=== PATIENT | female | born 1995 | race Caucasian/White ===

== ENCOUNTER 2022-06-20 12:55 | Outpatient (CLI) | payer BC, SELFPAY ==
--- NOTE | 2022-06-20 13:00 | CRLHL7_ITS ---
For Patients: As a result of the Cures Act, medical imaging exams and procedure reports are released immediately into your electronic medical record. You may view this report before your referring provider. If you have questions, please contact your health care provider. INDICATION: First trimester scan, establish dates. TECHNIQUE: Real-time zavala-scale imaging of the pelvis was performed. FINDINGS: Sonographic imaging demonstrates a single living intrauterine gestation. The embryo demonstrates a regular cardiac rate measuring 171 beats per minute. The embryo`s crown-rump length measurement o 1.9 Cm corresponds to a gestational age of 8 weeks 3 days with a sonographic due date of . There is a normal-appearing yolk sac. 01/27/2023. Three small areas of subchorionic hemorrhages measuring 0.8 x 1 x 0 5 centimeters, 1 x 0.5 x 6 centimeters and 0.9 x 3 x 0 4 centimeters. Left ovary seen right ovary appears unremarkable. IMPRESSION: Single live intrauterine gestation. Gestational age of 8 weeks 3 days with ALEX of 01/27/2023. Three small subchorionic hemorrhages. Dictated by Neha Matute MD @ 06/20/2022 2:36:23 PM (Electronically Signed)
== END 2022-06-20 12:56 | disposition home or self-care (01) ==
LOC: US 12:57
PROVIDERS: Visit Provider Advanced Practice Midwife
DX: Z34.91 Encounter for supervision of normal pregnancy, unspecified, first trimester (principal); Z3A.08 8 weeks gestation of pregnancy
CPT/HCPCS: 76817; 86592; 86703; 86762; 86787; 86803; 86850; 86900; 86901; 87086; 87340

== ENCOUNTER 2022-09-10 13:53 | Outpatient (CLI) | payer BC, SELFPAY ==
--- NOTE | 2022-09-10 14:04 | CRLHL7_ITS ---
For Patients: As a result of the Century Cures Act, medical imaging exams and procedure reports are released immediately into your electronic medical record. You may view this report before your referring provider. If you have questions, please contact your health care provider. INDICATION: Evaluate anatomy. COMPARISON: 06/20/2022 TECHNIQUE: Real time zavala scale imaging of the fetus was performed as well as color Doppler analysis of the umbilical vessels. FINDINGS: Sonographic imaging demonstrates a single living intrauterine gestation. Fetus demonstrates a regular cardiac rate of 141 beats per minute. Fetus has a vertex position. The placenta lies anteriorly without evidence of placenta previa. The edge of the placenta is located 10.3 cm from the internal cervical os. Amniotic fluid volume appears normal. Single deepest vertical pocket: 5.8 cm. The cervix is closed and measures 3.7 cm in length. The composite ultrasound gestational age is calculated at 21 weeks 0 days with an estimated sonographic due date of 01/21/2023. The estimated weight is 390 grams which lies at the 75th %. The following biometric measurements were obtained: Biparietal diameter: 4.9 cm/20 weeks 5 days 60th% Head circumference: 18.0 cm/20 weeks 3 days 42nd% Abdominal circumference: 16.4 cm/21 weeks 3 days 77th% Femur length: 3.4 cm/20 weeks 4 days 45th% The HC/AC ratio measures: 1.10 range (1.06-1.25) On anatomic survey, there is a normal appearance of the cerebral ventricles, cavum septi pellucidi, cisterna magna and cerebellum. The nose, lips, and facial profile appear normal. The cervical, thoracic and lumbar spine are well visualized and appear normal. There is a normal four-chamber heart view and the left and right ventricular outflow tracts appear normal. The diaphragm and stomach appear normal. The kidneys and bladder also appear normal. There is a normal three-vessel cord and cord insertion site. The four extremities appear normal. IMPRESSION: Normal OB ultrasound exam with concordance of clinical and sonographic dating. No intrinsic abnormalities noted on anatomic survey. Dictated by Carlin Adrian MD @ 09/11/2022 12:47:19 PM (Electronically Signed)
== END 2022-09-10 13:54 | disposition home or self-care (01) ==
LOC: US 13:53
PROVIDERS: Visit Provider Advanced Practice Midwife
DX: Z34.02 Encounter for supervision of normal first pregnancy, second trimester (principal)
CPT/HCPCS: 76805

== ENCOUNTER 2022-11-05 15:53 | Outpatient (CLI) | payer BC, SELFPAY ==
[2022-11-09 01:45] LABS: Rapid Plasma Reagin (RPR) Non Reactive (Non Reactive)
== END 2022-11-05 15:54 | disposition home or self-care (01) ==
LOC: NFLDREF 15:54
PROVIDERS: Visit Provider Advanced Practice Midwife
DX: Z34.90 Encounter for supervision of normal pregnancy, unspecified, unspecified trimester (principal)
CPT/HCPCS: 86592

== ENCOUNTER 2022-12-19 19:38 | Outpatient (CLI) | payer BC, SELFPAY ==
[2022-12-19 19:50] VITALS: BP 124/83; PULSE 74
[2022-12-19 19:53] VITALS: TEMP 36.6
[2022-12-19 20:05] VITALS: BP 125/68; PULSE 71
[2022-12-19 20:24] LABS: Appearance Urine Clear (Clear); Bilirubin Urine Negative (Negative); Blood Urine Trace-intact (Negative); Color Urine Yellow (Yellow); Glucose Urine Negative (Negative); Ketones Urine Negative (Negative); Leukocyte Esterase Urine Negative (Negative); Nitrite Urine Negative (Negative); Protein Urine Negative (Negative); Urobilinogen Urine 0.2 (0.2-1.0)
[2022-12-19 20:39] LABS: RBC Urine 0-2 (0-2); WBC Urine 0-2 (0-5)
--- NOTE | 2022-12-19 20:41 | PM.OBLDTN ---
Documented by User: Shani Powell 12/19/22 20:56 OB - Triage/Final Diagnosis Visit Information Date Seen: 12/19/22 Date of evaluation: 12/19/22 Narrative: Tiffany is a 27 year old 1 para 0 at 34.5 weeks gestation by LMP, who presents with right upper quadrant pain. This pain started today after she had a nap, she describes it as a sharp constant pain rated 6-7/10 which was worse when standing. She works from home and ate pizza and a bowl of ice cream today for lunch. She feels she has been able to stay hydrated today adequately. She has had no problems in her so far. Evaluation Laboratory results: Laboratory Tests 12/19/22 Range/Units 20:09 Urine Color Yellow (Yellow) Urine Appearance Clear (Clear) Urine pH 7.0 (5.0-8.5) Ur Specific [place] 1.010 (1.000-1.030) Urine Protein Negative (Negative) Urine Glucose (UA) Negative (Negative) Urine Ketones Negative (Negative) Urine Blood Trace-intact A (Negative) Urine Nitrite Negative (Negative) Urine Bilirubin Negative (Negative) Urine Urobilinogen 0.2 (0.2-1.0) Ur Leukocyte Esterase Negative (Negative) Urine RBC 0-2 (0-2) Urine WBC 0-2 (0-5) Ur Squamous Epith Cells None (None-Few) Urine Bacteria None (None) Vital signs: Vital Signs - 24 hr 12/19/22 19:53 12/19/22 19:50 12/19/22 20:05 Temperature 97.8 F Pulse Rate 74 71 Blood Pressure 124/83 125/68 Comments: On exam, her abdomen is non-tender with palpation, she states she has no pain when at rest in bed but pain returned when standing at the bedside. Fetus (Single) Heart Rate Baseline: 120 [employer] Variability: Moderate (6-25) Monitor Accelerations: Present Monitor Decelerations: None Final Diagnosis (1) Epigastric pain during , antepartum: Status: Acute Problem details: at 34.5 weeks with epigastric pain. Rule out heartburn or gas pain cannot exclude other causes. Tums given for relief of symptoms. May use Tums, GasX or Pepcid at home. Instructed to return for an increase in pain not relieved by heartburn medications. Patient agreeable to this plan. Discharged home. Visit by MELO Cullen with supervision by Stefany Zhao CNM Documented by User: Stefany Zhao CNM 12/20/22 07:12 OB - Triage/Final Diagnosis Fetus ( A) Heart Rate Baseline: 125 [facility] Variability: Moderate (11-25) Monitor Accelerations: Present Monitor Decelerations: None Final Diagnosis (1) Epigastric pain during , antepartum: Status: Acute Problem details: at 34.5 weeks with epigastric pain. Rule out heartburn or gas pain cannot exclude other causes. Tums given for relief of symptoms. May use Tums, GasX or Pepcid at home. Instructed to return for an increase in pain not relieved by heartburn medications. Patient agreeable to this plan. Discharged home. Visit by MELO Cullen with supervision by Stefany Zhao CNM
[2022-12-19] MEDS: CALCIUM CARBONATE 500 MG CHEW PO (20:42)
--- NOTE | 2022-12-19 21:01 | PC.OBNST ---
NST Note NST Note Start: 12/19/22 19:37 Freq: ONCE Status: Active Protocol: Document 12/19/22 21:00 HUY (Rec: 12/19/22 21:01 HUY [id number]) NST Note 1 Para (# of births) 0 EDC 01/25/23 Gestational Age In Weeks & Days 34 Weeks & 5 Days Patient Presented with Complaint(s) of Other If Pain, describe location epigastric pain Reactive Yes Appropriate for Gestational Age Yes LUCAS Whitten RN Date 12/19/22 Reactive Yes Appropriate for Gestational Age Yes LUCAS Dixon Date 12/19/22 OB NST charge Yes Complete NST Note via Write Note Yes The provider's electronic signature indicates the NST is reactive/appropriate for gestational age. *Note to provider: If an addendum is required, open the patient's chart and click on the note under the Nurse/Allied Health tab.
== END 2022-12-19 21:02 | disposition home or self-care (01) ==
LOC: OB OUT 19:39 → OB 19:42
PROVIDERS: Visit Provider Advanced Practice Midwife
DX: O26.899 Other specified pregnancy related conditions, unspecified trimester (principal); R10.13 Epigastric pain
CPT/HCPCS: 59025; 81003; 81015; 99213; A9270

== ENCOUNTER 2022-12-30 15:58 | Outpatient (CLI) | payer BC, SELFPAY ==
[2022-12-31 14:34] LABS: Strep B DNA Probe POSITIVE (Negative); Strep B Pen/Amox Allergy Yes
== END 2022-12-30 15:59 | disposition home or self-care (01) ==
LOC: NFLDREF 16:17
PROVIDERS: Visit Provider Advanced Practice Midwife
DX: Z34.03 Encounter for supervision of normal first pregnancy, third trimester (principal); Z3A.36 36 weeks gestation of pregnancy
CPT/HCPCS: 87081; 87653

== ENCOUNTER 2023-03-13 11:22 | Outpatient (CLI) | payer OTHER, SELFPAY ==
--- NOTE | 2023-03-13 11:30 | CRLHL7_ITS ---
For Patients: As a result of the Century Cures Act, medical imaging exams and procedure reports are released immediately into your electronic medical record. You may view this report before your referring provider. If you have questions, please contact your health care provider. INDICATION: POST BLEEDING COMPARISON: none TECHNIQUE: 2D zavala scale and color Doppler images were acquired of the pelvis using a transabdominal and transvaginal approach. FINDINGS: Sonographic images demonstrate a normal size and smooth outer contour of the uterus. Uterus measures 11.3 cm in length by 5.1 cm in AP diameter by 6.9 cm in transverse dimension. The myometrium has a normal uniform echotexture. The endometrial lining appears thickened and irregular with decreased echotexture and measures 21 mm in composite thickness. Increased vascularity within the anterior left lateral aspect. The right ovary measures 4.1 x 2.7 x 2.4 cm in size and the left ovary measures 3.5 x 1.3 x 2.7 cm. The ovaries demonstrate normal arterial and venous blood flow on color Doppler analysis. There are no suspicious fluid collections within the cul-de-sac. IMPRESSION: Thickened and irregular endometrial stripe measuring 2.1 cm. Increased vascularity along the anterior left lateral wall suggesting small area of retained products. Dictated by Carlin Adrian MD @ 03/13/2023 1:17:44 PM (Electronically Signed)
== END 2023-03-13 11:23 | disposition home or self-care (01) ==
LOC: US 11:22
PROVIDERS: Visit Provider Physician Assistant
DX: O72.1 Other immediate postpartum hemorrhage (principal); R93.89 Abnormal findings on diagnostic imaging of other specified body structures
CPT/HCPCS: 76830; 76856

== ENCOUNTER 2023-03-27 15:56 | Outpatient (CLI) | payer OTHER, SELFPAY ==
--- NOTE | 2023-03-27 16:00 | CRLHL7_ITS ---
For Patients: As a result of the Century Cures Act, medical imaging exams and procedure reports are released immediately into your electronic medical record. You may view this report before your referring provider. If you have questions, please contact your health care provider. CLINICAL HISTORY: f/u post bleeding TECHNIQUE: 2D zavala scale and color Doppler images were acquired of the pelvis using a transvaginal approach. Comparison 03/13/2023 FINDINGS: On transvaginal imaging, the myometrium has a normal uniform echotexture. The uterus measures 7.9 x 4.5 x 6.8 cm. The endometrial lining measures 6 mm in thickness. A trace amount of endometrial fluid may be present. No abnormal vascularity. The left ovary measures 2.6 x 1.3 x 1.6 cm in size and the right ovary measures 3.3 x 2.0 x 2.0 cm. The ovaries demonstrate normal arterial and venous blood flow on color Doppler analysis. There are no suspicious fluid collections within the cul-de-sac. IMPRESSION: Endometrium measures 6 millimeters. No evidence of retained products. Dictated by Carlin Adrian MD @ 03/28/2023 9:05:56 AM (Electronically Signed)
== END 2023-03-27 15:57 | disposition home or self-care (01) ==
LOC: US 15:57
PROVIDERS: Visit Provider Physician Assistant
DX: O72.1 Other immediate postpartum hemorrhage (principal); R93.89 Abnormal findings on diagnostic imaging of other specified body structures
CPT/HCPCS: 76830

== ENCOUNTER 2025-05-10 12:47 | Outpatient (CLI) | payer OTHER, SELFPAY ==
--- NOTE | 2025-05-10 13:00 | CRLHL7_ITS ---
For Patients: As a result of the Century Cures Act, medical imaging exams and procedure reports are released immediately into your electronic medical record. You may view this report before your referring provider. If you have questions, please contact your health care provider. INDICATION: Dating and viability. TECHNIQUE: Ultrasound OB pelvis transvaginal for better assessment or to better visualize the ovaries. Real-time zavala-scale imaging of the pelvis was performed. COMPARISON: None. FINDINGS: There is a single intrauterine gestation. The embryo demonstrates a regular cardiac rate measuring 167 beats per minute. The embryo`s crown rump length measurement of 1.9 cm corresponds to a gestational age of 8 weeks 3 days with a sonographic due date of 12/17/2025. There is a normal appearing yolk sac. There are no gross abnormalities noted within the embryo at this early state of development. The placenta has not yet developed. There is no sign of perigestational hemorrhage. The ovaries are not visualized. There are no suspicious fluid collections noted in the cul-de-sac. IMPRESSION: Single viable intrauterine with sonographic age of 8 weeks 3 days. Dictated by Wilmer Parry MD @ 05/20/2025 1:31:18 PM (Electronically Signed)
== END 2025-05-10 12:48 | disposition home or self-care (01) ==
LOC: US 12:47
PROVIDERS: Visit Provider Midwife
DX: Z34.91 Encounter for supervision of normal pregnancy, unspecified, first trimester (principal); Z3A.08 8 weeks gestation of pregnancy
CPT/HCPCS: 76817; 83021; 86592; 86703; 86704; 86706; 86762; 86787; 86803; 87086; 87340

== ENCOUNTER 2025-07-28 11:58 | Outpatient (CLI) | payer OTHER, SELFPAY ==
--- NOTE | 2025-07-28 12:15 | CRLHL7_ITS ---
For Patients: As a result of the Century Cures Act, medical imaging exams and procedure reports are released immediately into your electronic medical record. You may view this report before your referring provider. If you have questions, please contact your health care provider. INDICATION: Second trimester anatomical survey. COMPARISON: None. TECHNIQUE: survey with documented anatomy as per the 2018 [id number] Practice Parameter for the performance of standard diagnostic ultrasound examination. FINDINGS: number: 1 position: Cephalic. Placenta: Anterior. Amniotic fluid: Single deepest pocket of amniotic fluid is 4.8 cm, normal. Uterus: The cervical length is 4.8cm. No significant uterine findings. Right ovary: Not seen Left ovary: Not seen. heart rate: 147bpm. BPD: 4.6cm; 20 weeks and 0 days. Percentile: 47% HC: 16.9cm; 19 weeks and 3 days. Percentile: 20% AC: 14.7cm; 20 weeks and 0 days. Percentile: 43% FL: 2.9cm; 19 weeks and 0. Percentile: 13% US EGA: 19 weeks and 4. US ALEX: 12/18/2025 Established ALEX: 12/15/2025 EFW: 299gm, +/-45gm, corresponding to the 20 second percentile for the established ALEX. Documented Anatomy: Head and Neck Midline falx: Seen. Choroid plexus: Seen. Lateral ventricles: Seen. Cavum septum pellucidum: Seen. Cerebellum: Seen. Cisterna Magna: Seen. Nuchal fold: Seen. Upper lip: Seen. Chest Cardiac axis: Seen. 4 Chamber view: Seen. LVOT: Seen. RVOT: Seen. 3VV/3VT: Seen. Abdomen Stomach: Seen. Kidneys: Seen. Bowel: Seen. Urinary bladder: Seen. Abdominal cord insertion: Seen. 3 vessel cord: Seen. Limbs Right arm and hand: Seen. Left arm and hand: Seen. Right leg and foot: Seen. Left leg and foot: Seen. Spine in Sagittal and Transverse Planes Cervical: Limited due to position. Thoracic: Limited due to position. Lumbar: Limited due to position. Sacral: Limited due to position. Motion: Present. anatomy documented as per the 2018 [id number] Practice Parameter for the performance of standard diagnostic ultrasound examinations. (Reference: https://onlinelibrary.sams.com/doi/10.1002/jum.99606) IMPRESSION: Limited evaluation of the spine due to position. Otherwise normal survey. Short interval follow-up is recommended. Dictated by Bin Mcgowan MD @ 07/29/2025 11:01:23 AM (Electronically Signed)
== END 2025-07-28 11:59 | disposition home or self-care (01) ==
LOC: US 11:59
PROVIDERS: Visit Provider Advanced Practice Midwife
DX: Z34.92 Encounter for supervision of normal pregnancy, unspecified, second trimester (principal); Z3A.20 20 weeks gestation of pregnancy
CPT/HCPCS: 76805

== ENCOUNTER 2025-08-04 11:03 | Outpatient (CLI) | payer OTHER, SELFPAY ==
--- NOTE | 2025-08-04 11:15 | CRLHL7_ITS ---
For Patients: As a result of the Cures Act, medical imaging exams and procedure reports are released immediately into your electronic medical record. You may view this report before your referring provider. If you have questions, please contact your health care provider. ALEX by LMP: 12/15/2025. GA: 21w, 0d. Single. INDICATION: Incomplete views of spine. CERVIX: Not visualized. POSITIONING: Vertex. AMNIOTIC FLUID: 5.6 cm SDP. PLACENTA: Technique: Transabdominal. PLACENTA POSITION: Anterior. DOPPLER: heart rate: 144 bpm. IMPRESSION: Normal spine. Carlin Adrian M.D. Diagnostic Radiologist [email or web address] bM/Dictated by: Carlin Adrian MD @ 08/04/2025 12:26:00 PM (Electronically Signed)
== END 2025-08-04 11:04 | disposition home or self-care (01) ==
LOC: US 11:04
PROVIDERS: Visit Provider Advanced Practice Midwife
DX: O28.3 Abnormal ultrasonic finding on antenatal screening of mother (principal); Z3A.21 21 weeks gestation of pregnancy
CPT/HCPCS: 76816